=== PATIENT | female | born 1990 | race Hispanic/Latino ===

== ENCOUNTER 2021-09-12 21:06 | Emergency (ER) | payer BC, OTHER ==
[~2021-09-12] VITALS: Ht 152.4 cm; Wt 80.3 kg
[2021-09-12 21:27] VITALS: BP 135/85
[2021-09-12] MEDS ORDERED: TETANUS/DIPHTHERIA TOXOID [ADULT] 0.5 ML VIAL IM ONE (22:00)
[2021-09-12] MEDS ORDERED: BACI30OI6 TP (23:00)
[2021-09-12] MEDS ORDERED: AMOX1TAB16 PO (23:00)
[2021-09-12] MEDS ORDERED: AMOX/CLAV 875/125MG TAB PO ONE (23:00)
== END 2021-09-12 23:14 | disposition home or self-care (01) ==
LOC: EDH 21:06
DX: S01.312A Laceration without foreign body of left ear, initial encounter (principal); F41.9 Anxiety disorder, unspecified; F32.A Depression, unspecified; X58.XXXA Exposure to other specified factors, initial encounter; Y93.89 Activity, other specified; Y92.89 Other specified places as the place of occurrence of the external cause; Y99.8 Other external cause status
CPT/HCPCS: 12011; 90471; 90714